=== PATIENT | female | born 1985 | race Caucasian/White ===

== ENCOUNTER 2020-10-03 07:13 | Emergency (ER) | payer SELFPAY ==
[2020-10-03 18:46] LABS: SARS-CoV-2 PCR by NAA DETECTED (NotDetected)
== END 2020-10-03 08:56 | disposition home or self-care (01) ==
LOC: CSHERS 07:13
DX: U07.1 COVID-19 (principal); J06.9 Acute upper respiratory infection, unspecified
CPT/HCPCS: 87635; 99284; U0003; U0005

== ENCOUNTER 2020-10-07 12:48 | Emergency (ER) | payer SELFPAY ==
[2020-10-07 14:09] LABS: #Monocytes 0.3 10x3/uL (0.0-1.1); #Neutrophils 5.4 10x3/uL (1.5-8.4); %Basophils 0.3 % (0.0-2.0); %Eosinophils 0.1 % (0.0-6.0); %Lymphocytes 16.1 % (18.0-47.0); %Monocytes 4.3 % (0.0-10.0); %Neutrophils 78.9 % (40.0-75.0); Hemoglobin 13.9 g/dL (12.0-15.5); Mean Corpuscular HGB CONC 32.6 g/dL (32.0-36.0); Mean Corpuscular Hemoglobin 29.1 pg (27.0-33.0); Mean Corpuscular Volume 89.3 fl (81.6-98.3); Mean Platelet Volume 10.7 fl (7.4-10.4); Platelet Count 216 10x3/uL (150-450); RBC Distribution Width 12.5 % (11.5-14.5); Red Blood Cell (RBC) Count 4.78 10x6/uL (3.90-5.03); White Blood Cell (WBC) Count 6.8 10x3/uL (3.5-10.5)
[2020-10-07 14:17] LABS: ALT (SGPT) 42 U/L (8-55); AST (SGOT) 37 U/L (5-34); Albumin 3.9 g/dL (3.5-5.0); Alkaline Phosphatase 70 U/L (40-110); Anion Gap 12 mmol/L (10-20); BHCG - Serum Negative (NEGATIVE); BUN (Urea Nitrogen) 9 mg/dL (7.0-18.7); Bilirubin, Total 0.2 mg/dL (0.2-1.2); CK (CPK) 129 U/L (29-168); Calc. Creatinine Clearance 0 mL/min (70-130); Calcium 8.4 mg/dL (7.8-10.44); Carbon Dioxide 26 mmol/L (22-29); Chloride 102 mmol/L (98-107); Globulin 2.7 g/dL (2.4-3.5); Glucose 104 mg/dL (70-105); Potassium 4.2 mmol/L (3.5-5.1); Pregs Control Background? CLEAR/WHITE (CLR/WHITE); Pregs Control Bar Appear? YES (CONTROL BAR); Protein, Total 6.6 g/dL (6.0-8.3); Sodium 136 mmol/L (136-145)
[2020-10-07] MEDS ORDERED: Ketorolac Tromethamine 30 MG/ML VIAL ONE (14:25)
== END 2020-10-07 17:04 | disposition home or self-care (01) ==
LOC: CSHERS 12:48
DX: U07.1 COVID-19 (principal); R55 Syncope and collapse
CPT/HCPCS: 70450; 71275; 72125; 80053; 82550; 83605; 84484; 84703; 85025; 93005; 96374; J1885

== ENCOUNTER 2020-10-20 01:24 | Emergency (ER) | payer SELFPAY ==
[2020-10-20] MEDS ORDERED: Ketorolac Tromethamine 30 MG/ML VIAL ONE (01:50)
[2020-10-20] MEDS ORDERED: Bupivacaine PF 0.5% 30 ML VIAL ONE (01:51)
== END 2020-10-20 02:18 | disposition home or self-care (01) ==
LOC: CSHERS 01:24
DX: K02.9 Dental caries, unspecified (principal)
CPT/HCPCS: 64400; 96372; J1885; S0020

== ENCOUNTER 2021-05-01 12:12 | Emergency (ER) | payer SELFPAY ==
[2021-05-01 19:17] LABS: SARS-CoV-2 NAA Rapid Test Not Detected (NotDetected)
== END 2021-05-01 19:09 | disposition home or self-care (01) ==
LOC: CSHERS 12:12
DX: J06.9 Acute upper respiratory infection, unspecified (principal); Z20.822 Contact with and (suspected) exposure to COVID-19
CPT/HCPCS: 0240U; 71045

== ENCOUNTER 2021-06-06 13:11 | Emergency (ER) | payer SELFPAY | END 2021-06-06 16:30 | disposition home or self-care (01) | LOC: CSHERS 13:11 | DX: B34.9 Viral infection, unspecified (principal); R11.2 Nausea with vomiting, unspecified | CPT/HCPCS: 87804; 99283 ==

== ENCOUNTER 2021-06-24 11:55 | Emergency (ER) | payer SELFPAY | END 2021-06-24 12:57 | disposition home or self-care (01) | LOC: CSHERS 11:55 | DX: J06.9 Acute upper respiratory infection, unspecified (principal) | CPT/HCPCS: 99283 ==

== ENCOUNTER 2021-07-17 18:55 | Emergency (ER) | payer SELFPAY ==
[2021-07-17] MEDS ORDERED: Ibuprofen 200 MG TAB ONE (19:37)
[2021-07-18 17:56] LABS: SARS-CoV-2 PCR by NAA Not Detected (NotDetected)
== END 2021-07-17 20:24 | disposition home or self-care (01) ==
LOC: CSHERS 18:55
DX: J18.9 Pneumonia, unspecified organism (principal); Z20.822 Contact with and (suspected) exposure to COVID-19
CPT/HCPCS: 71045; 93005; U0003; U0005

== ENCOUNTER 2023-05-23 14:33 | Emergency (ER) | payer BC ==
[2023-05-23 16:45] LABS: SARS-CoV-2 NAA Rapid Test Not Detected (NotDetected)
== END 2023-05-23 16:27 | disposition home or self-care (01) ==
LOC: CSHERS 14:33
DX: J06.9 Acute upper respiratory infection, unspecified (principal); F17.200 Nicotine dependence, unspecified, uncomplicated; Z20.822 Contact with and (suspected) exposure to COVID-19
CPT/HCPCS: 99283

== ENCOUNTER 2024-05-24 21:55 | Emergency (ER) | payer BC, OTHER | END 2024-05-25 00:30 | disposition home or self-care (01) | LOC: CSHERS 21:55 | DX: S50.11XA Contusion of right forearm, initial encounter (principal); S80.11XA Contusion of right lower leg, initial encounter; F17.200 Nicotine dependence, unspecified, uncomplicated; V49.49XA Driver injured in collision with other motor vehicles in traffic accident, initial encounter; Y93.89 Activity, other specified | CPT/HCPCS: 99283 ==